=== PATIENT | female | born 1980 | race Caucasian/White ===

== ENCOUNTER 2023-03-15 14:34 | Emergency (ER) | payer OTHER, BC, SELFPAY ==
--- NOTE | ~2023-03-15 | XR_ITS ---
XR hand RT min 3V 03/15/2023 15:27 INDICATION: Right hand pain after recent injury PROCEDURE: 3 views right hand COMPARISON: No prior studies for comparison. FINDINGS: Fracture, dislocation or subluxation is not identified. The soft tissues appear within norm al limits. No foreign bodies are identified. IMPRESSION: 1: NO ACUTE BONE OR JOINT ABNORMALITY IDENTIFIED. Reviewed, dictated and finalized at location A.
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
[2023-03-15 14:59] VITALS: BP 122/71; PULSE 82; RESP 16; TEMP 37.4; O2SAT 98
[2023-03-15 15:07] VITALS: BP 122/71; PULSE 82; RESP 16; TEMP 37.4; O2SAT 98
--- NOTE | 2023-03-15 15:33 | PC.NURSE ---
betadine soak per inpatient auditor vorb.
== END 2023-03-15 15:57 | disposition home or self-care (01) ==
PROVIDERS: Emergency Provider Nurse Practitioner
DX: S60.221A Contusion of right hand, initial encounter (principal); S80.211A Abrasion, right knee, initial encounter; W05.1XXA Fall from non-moving nonmotorized scooter, initial encounter
CPT/HCPCS: 73130; 99213; G0463